=== PATIENT | female | born 1970 | race Caucasian/White ===

== ENCOUNTER → 2021-05-07 08:46 | Outpatient (CLI) | payer OTHER, SELFPAY ==
--- NOTE | ~2021-05-07 | MR_ITS ---
EXAMINATION: MR knee RT wo con DATE: 05/07/2021 09:29 INDICATION: Right knee pain TECHNIQUE: Magnetic resonance imaging (MRI) of the right knee was performed without intravenous contr ast. Sequences included coronal PD-weighted FSE, coronal PD-weighted FS FSE, sagittal T2-weighted FS E, sagittal PD-weighted FS FSE and axial PD weighted fat saturated FSE. COMPARISON: None. FINDINGS: Medial compartment: Full-thickness radial tear near the posterior root of the medial meniscus. Chondral surface irregular ity with suggestion of a small partial-thickness chondral flap tear along the lateral margin of the j unction of the anterior to central weightbearing medial femoral condyle. Remaining cartilage in the m edial compartment is normal. Lateral compartment: Lateral meniscus is normal. Shallow chondral fissuring at the central aspect of the lateral tibial pl ateau. Normal cartilage along the weightbearing lateral femoral condyle. Patellofemoral compartment: Full-thickness chondral ulceration with deep fissuring centered at the patellar apical ridge and imme diately adjacent medial and lateral patellar facets. Additional partial thickness chondral fissuring at the inferior aspect of the trochlear groove and inferolateral aspect of the medial trochlea. Ligaments and tendons: Anterior and posterior cruciate ligaments are normal. The medial collateral ligament and fibular yolis ateral ligament complex are normal. The extensor mechanism is normal. The visualized medial and later al hamstring tendons as well as the iliotibial band are normal. Fluid: Physiologic amount of fluid in the joint space. No loose osteochondral bodies identified. Moderate-si zed multilobulated Montiel's cyst measuring 5 cm craniocaudally and 1.9 x 0.8 cm maximal transaxial dim ensions. Osseous/other: Normal marrow signal. No fracture or pathologic marrow replacing process. IMPRESSION: 1. Full-thickness radial tear near the posterior root of the medial meniscus. 2. 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 3. Moderate-sized Montiel's cyst. Reviewed, dictated and finalized at location A. IMPRESSION: 1. Full-thickness radial tear near the posterior root of the medial meniscus. 2. 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 3. Moderate-sized Montiel's cyst.
== END ==
PROVIDERS: PCP Nurse Practitioner Psychiatric/Mental Health; Visit Provider Orthopaedic Surgery
DX: S83.241A Other tear of medial meniscus, current injury, right knee, initial encounter (principal); M22.41 Chondromalacia patellae, right knee; M71.21 Synovial cyst of popliteal space [Baker], right knee
CPT/HCPCS: 73721